=== PATIENT | female | born 1945 | race Caucasian/White ===

== ENCOUNTER 2017-12-25 13:17 | Inpatient (IN) | payer OTHER, MEDICARE ==
[~2017-12-25] VITALS: Ht 165.1 cm; Wt 81.6 kg
[~2017-12-25 13:17] MED LIST: ACYCLOVIR 200200 MG PO; AMBEREN PO; BENICAR40 MG PO; CLARITIN10 M2 PO; FLEXERIL PO; LEVOTHYROXINE0.05 MG PO; LORTAB 5 MG/5001 TA1 PO; NORCO 5-325 TA1 EACH PO; PERCOCET 5-3251 EACH PO; PERCOCET 7.5-31 EACH PO; SYNTHROID PO; Synthroid PO; TEKTURNA300 MG PO; VICODIN; Zovirax PO
[2017-12-25 13:20] VITALS: BP 112/59
[2017-12-25] MEDS ORDERED: HYDROCHLOROTH12.5 M1 PO (14:07)
[2017-12-25] MEDS ORDERED: LIPITOR10 MG PO (14:07)
[2017-12-25] MEDS ORDERED: NEURONTIN 300300 M1 PO (14:07)
[2017-12-25 14:08] LABS: ABSOLUTE LYMPHOCYTES 0.4 thou/uL (0.8-5.3); ABSOLUTE MONOCYTES 0.5 thou/uL (0.0-1.2); ABSOLUTE NEUTROPHILS 2.4 thou/uL (1.6-8.1); BASOPHILS 0.3 %; EOSINOPHILS 0.8 %; HEMATOCRIT 36.9 % (37.0-47.0); HEMOGLOBIN 12.4 gm/dL (12.0-15.0); LYMPHOCYTES 12.4 %; MCH 31.4 pg (26.0-34.0); MCHC 33.5 g/dL (28.0-37.0); MCV 93.6 fL (80.0-100.0); MONOCYTES 14.2 %; MPV 7.2 fl. (7.2-11.1); NUCLEATED RBCS 0 /100WBC; PLATELET COUNT* 111 thou/uL (150-400); POLYS 72.3 %; RBC 3.94 mil/uL (4.20-5.00); RDW-CV 13.7 % (10.5-14.5); WBC 3.4 thou/uL (4.0-11.0)
[2017-12-25] MEDS ORDERED: ARIMIDEX1 MG PO (14:08)
[2017-12-25] MEDS ORDERED: COZAAR 50 MG TA50 M2 PO (14:09)
[2017-12-25] MEDS ORDERED: SYNTHROID100 MCG PO (14:09)
[2017-12-25 14:16] LABS: ANION GAP 6 mmol/L (7-16); BUN 26 mg/dL (7-18); CALCIUM 7.8 mg/dL (8.5-10.1); CHLORIDE 106 mmol/L (98-107); CO2 30 mmol/L (21-32); CREATININE 0.9 mg/dL (0.6-1.3); GLUCOSE 120 mg/dL (70-99); POTASSIUM 3.7 mmol/L (3.5-5.1); SODIUM 142 mmol/L (136-145)
[2017-12-25 14:18] LABS: INR 1.1; PROTIME 10.5 Seconds (9.20-11.50)
[2017-12-25 14:28] LABS: ALBUMIN 3.1 g/dL (3.4-5.0); ALKALINE PHOSPHATASE 49 U/L (46-116); NT-PRO BRAIN NAT PEPTIDE 29 pg/mL (<300); SGOT 32 U/L (15-37); SGPT 37 U/L (30-65); TOTAL BILIRUBIN 0.6 mg/dL (<0.1-1.0); TOTAL PROTEIN 6.2 g/dL (6.4-8.2); TROPONIN-I LEVEL <0.06 ng/mL (<0.06)
[2017-12-25 14:38] LABS: URINE BILIRUBIN NEGATIVE (Negative); URINE BLOOD 2+ (Negative); URINE CLARITY CLOUDY; URINE COLOR YELLOW; URINE GLUCOSE-RANDOM NEGATIVE (Negative); URINE KETONES NEGATIVE (Negative); URINE LEUKOCYTES-REFLEX 2+ (Negative); URINE NITRITE-REFLEX POSITIVE (Negative); URINE PROTEIN 1+ (Negative); URINE SPECIFIC GRAVITY 1.015 (1.005-1.030); URINE UROBILINOGEN 0.2 E.U./dl (0.2-1.0)
[2017-12-25 14:49] LABS: SQUAMOUS 4-10 Moderate /LPF (0-3); WBC CLUMPS Moderate (None Seen)
[2017-12-25 14:50] LABS: MUCUS None Seen strn/LPF (None Seen)
[2017-12-25 14:51] LABS: AMORPHOUS PHOSPHATES Few /LPF (None Seen); WAXY CAST 0-3 Few /LPF (None Seen)
[2017-12-25 17:10] VITALS: BP 129/82
--- NOTE | 2017-12-25 17:29 | EKG ---
[place] [address] ELECTROCARDIOGRAM REPORT Name: ROSLYN TORRE Room: [address] ADM IN [facility].#: [id number] Admission: 12/25/17 Attend Phys: Judith Diop Discharge: Date of : 47 Report #: [id number] THIS REPORT FOR: //name// [facility] ED Test Date: 2017-12-25 Test Time: 13:40:47 Pat Name: ROSLYN TORRE Department: Room: [facility] Gender: F Musician Instrumental: Kristen WAITE : 1945 Requested By: Radha Segovia Order Number: [id number] MD: Jaison Corea Measurements Intervals Cameron Rate: 61 P: 42 SD: 157 QRS: -31 QRSD: 107 T: 21 QT: 448 QTc: 452 Interpretive Statements Sinus rhythm Left axis deviation Low voltage, precordial leads Baseline wander in lead(s) V2,V4,V6 Compared to ECG 09/16/2011 10:55:38 Left-axis deviation now present Low QRS voltage now present Sinus bradycardia no longer present Myocardial infarct finding no longer present Electronically Signed On 12-25-2017 17:29:41 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
[2017-12-25 17:30] VITALS: BP 125/60
[2017-12-25 19:35] VITALS: BP 99/60
[2017-12-25 19:38] LABS: CHOLESTEROL 130 mg/dL (<200); HDL CHOLESTEROL 37 mg/dL (>40); LDL CHOLESTEROL 76 mg/dL (<100); TC:HDL 3.5 Ratio (Not establshd); TRIGLYCERIDE 86 mg/dL (<150); VLDL 17 mg/dL (<40)
[2017-12-25 19:42] LABS: SERUM ASSESSMENT CLEAR
[2017-12-26] VITALS: BP 97/56
[2017-12-26 00:20] LABS: INFLUENZA A ANTIGEN None Detected (None Detect)
[2017-12-26 04:12] VITALS: BP 125/68
[2017-12-26 04:43] LABS: ABSOLUTE LYMPHOCYTES 0.8 thou/uL (0.8-5.3); ABSOLUTE MONOCYTES 0.4 thou/uL (0.0-1.2); ABSOLUTE NEUTROPHILS 1.9 thou/uL (1.6-8.1); BASOPHILS 0.4 %; EOSINOPHILS 1.2 %; HEMATOCRIT 35.8 % (37.0-47.0); HEMOGLOBIN 12.1 gm/dL (12.0-15.0); LYMPHOCYTES 25.6 %; MCH 31.3 pg (26.0-34.0); MCHC 33.7 g/dL (28.0-37.0); MCV 92.7 fL (80.0-100.0); MONOCYTES 13.8 %; MPV 7.8 fl. (7.2-11.1); NUCLEATED RBCS 0 /100WBC; PLATELET COUNT* 108 thou/uL (150-400); RBC 3.86 mil/uL (4.20-5.00); RDW-CV 13.6 % (10.5-14.5); WBC 3.2 thou/uL (4.0-11.0)
[2017-12-26 05:14] LABS: ALBUMIN 2.9 g/dL (3.4-5.0); CALCIUM 8.1 mg/dL (8.5-10.1); CREATININE 0.8 mg/dL (0.6-1.3); POTASSIUM 3.6 mmol/L (3.5-5.1); TOTAL BILIRUBIN 0.3 mg/dL (<0.1-1.0); TOTAL PROTEIN 5.6 g/dL (6.4-8.2)
[2017-12-26 08:00] VITALS: BP 115/56
[2017-12-26 12:14] VITALS: BP 118/96
[2017-12-26 16:00] VITALS: BP 104/58
[2017-12-26 20:00] VITALS: BP 111/66
[2017-12-27] VITALS (7 sets, daily range): BP systolic 100–155; BP diastolic 54–83
[2017-12-27 05:10] LABS: ABSOLUTE LYMPHOCYTES 0.9 thou/uL (0.8-5.3); ABSOLUTE MONOCYTES 0.4 thou/uL (0.0-1.2); ABSOLUTE NEUTROPHILS 1.5 thou/uL (1.6-8.1); BASOPHILS 0.4 %; EOSINOPHILS 1.3 %; HEMATOCRIT 35.2 % (37.0-47.0); LYMPHOCYTES 30.6 %; MCH 31.3 pg (26.0-34.0); MCHC 34.1 g/dL (28.0-37.0); MCV 91.7 fL (80.0-100.0); MPV 7.7 fl. (7.2-11.1); NUCLEATED RBCS 0 /100WBC; PLATELET COUNT* 95 thou/uL (150-400); POLYS 54.7 %; RBC 3.84 mil/uL (4.20-5.00); RDW-CV 13.9 % (10.5-14.5); WBC 2.8 thou/uL (4.0-11.0)
[2017-12-27 05:33] LABS: ALBUMIN 2.9 g/dL (3.4-5.0); CALCIUM 7.9 mg/dL (8.5-10.1); CREATININE 0.7 mg/dL (0.6-1.3); POTASSIUM 3.7 mmol/L (3.5-5.1); TOTAL BILIRUBIN 0.3 mg/dL (<0.1-1.0); TOTAL PROTEIN 5.6 g/dL (6.4-8.2)
--- NOTE | 2017-12-27 09:16 | CON ---
[address] [address] CONSULTATION Name: TORREROSLYN L Room: [address] IN M.R.#: [id number] Admission: 12/25/17 Attend Phys: Judith Diop Discharge: Date of : 47 Report #: [id number] THIS REPORT FOR: //name// CC: Alisha Latif INDICATION: Syncope. HISTORY OF PRESENT ILLNESS: The patient is a very pleasant 72-year-old white female who was in her usual state of health yesterday when she went to go [employer]. She drove herself from [place] to [facility] [place]. 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 She does not recall any events leading up to syncope. The next thing she recalls people were standing around her asking her not to move. She had no significant symptoms prior to this and none since. EMS was summoned to the scene. She was found to be significantly hypotensive. She was transferred to the hospital for further evaluation and admitted with syncope. She does have a history of hypertension for which she takes hydrochlorothiazide and losartan. She does take atorvastatin as well for hyperlipidemia. She has not been having any significant chest pain or shortness of breath. She has been relatively asymptomatic. She does have a history of having echocardiograms approximately 6 years ago in the process of chemotherapy for breast cancer. She reports that those echocardiograms remained unremarkable. PAST MEDICAL HISTORY: 1. Breast cancer, status post chemotherapy. 2. Hyperlipidemia. 3. Hypertension. 4. Hypothyroidism. PAST SURGICAL HISTORY: Appendectomy. FAMILY HISTORY: Noncontributory. SOCIAL HISTORY: The patient is . She does not smoke. She drinks alcohol occasionally. ALLERGIES: PENICILLIN. CURRENT MEDICATIONS: Anastrozole 1 mg daily, atorvastatin 10 mg at bedtime, gabapentin 300 mg at bedtime, hydrochlorothiazide 12.5 mg daily, Synthroid 0.1 mg daily, losartan 100 mg daily. REVIEW OF SYSTEMS: On 14-point review of systems [place] [address] CONSULTATION Name: ROSLYN TORRE Jason Room: [address]#: [id number] Admission: 12/25/17 Attend Phys: Judith Diop Discharge: Date of : 47 Report #: [id number] of clear sputum. She has history of some asthma remotely. She had syncope for admission diagnosis at this time. As a child she was told she had a heart murmur. She has hypothyroidism. She has a history of breast cancer, status post chemotherapy. She has allergies as outlined above. She wears glasses without acute visual change. The 14-point review of systems otherwise unremarkable. PHYSICAL EXAMINATION: VITAL SIGNS: Stable. Blood pressure 115/56, pulse 59 and regular. GENERAL: This is a pleasant elderly female, in no distress. Mood and affect appropriate. HEENT: The patient is wearing glasses. Extraocular muscles intact. Mucous membranes are moist. NECK: Shows no jugular venous distention. There are no carotid bruits. CHEST: Reveals clear lung reid without wheezes, rales or rhonchi. CARDIOVASCULAR: Reveals a regular rhythm with normal S1 and S2. I do not appreciate gallop or murmur. ABDOMEN: Reveals normal bowel sounds. The abdomen is soft, nontender. EXTREMITIES: Shows no edema. SKIN: Warm and dry. Pulses 2+ and palpable. LABORATORY DATA: A 12-lead EKG shows normal sinus rhythm with no significant ST or T-wave abnormality. Labs are reviewed. Electrolytes are within normal limits. BUN 19, creatinine 0.8, serum glucose 91. LFTs within normal limits. Lipid profile shows a total cholesterol of 130, triglycerides 86, HDL 37, LDL 76. White blood cell count 3.2, hemoglobin 12.1, platelet count 108,000. The patient was apparently positive for influenza B. CTA with PE protocol shows no evidence of pulmonary embolus. Portable chest x-ray unremarkable. CT of the head shows some chronic changes, but no acute abnormalities. IMPRESSION AND RECOMMENDATIONS: 1. Syncope, etiology not entirely clear. I believe she had some dehydration probably from hydrochlorothiazide. She was significantly hypotensive. At this point in time, I would repeat echocardiogram. This can be done as an outpatient. I would discontinue her hydrochlorothiazide. I would encourage her to make sure she gets adequate fluid intake. 2. Hypertension. Blood pressure low normal presently. I would discontinue hydrochlorothiazide as outlined above [place] [address] CONSULTATION Name: ROSLYN TORRE Room: [address] IN [facility]#: [id number] Admission: 12/25/17 Attend Phys: Judith Diop Discharge: Date of : 47 Report #: [id number] 3. Hyperlipidemia. She is certainly at goal with her current dose of atorvastatin, would continue as outlined above. <ELECTRONICALLY SIGNED> By: Jerome De Anda MD, FACC 12/27/17 0916 0956 1900Micosvaldo De Anda MD, FACC /nt
[2017-12-28 03:51] VITALS: BP 118/82
[2017-12-28 05:27] LABS: ABSOLUTE EOSINOPHILS 0.1 thou/uL (0.0-0.7); ABSOLUTE LYMPHOCYTES 1.2 thou/uL (0.8-5.3); ABSOLUTE MONOCYTES 0.4 thou/uL (0.0-1.2); ABSOLUTE NEUTROPHILS 1.8 thou/uL (1.6-8.1); BASOPHILS 0.3 %; EOSINOPHILS 1.8 %; HEMATOCRIT 35.4 % (37.0-47.0); HEMOGLOBIN 12.1 gm/dL (12.0-15.0); LYMPHOCYTES 34.2 %; MCH 31.2 pg (26.0-34.0); MCHC 34.1 g/dL (28.0-37.0); MCV 91.6 fL (80.0-100.0); MONOCYTES 10.8 %; NUCLEATED RBCS 0 /100WBC; PLATELET COUNT* 95 thou/uL (150-400); POLYS 52.9 %; RBC 3.87 mil/uL (4.20-5.00); RDW-CV 13.5 % (10.5-14.5); WBC 3.4 thou/uL (4.0-11.0)
[2017-12-28 05:48] LABS: ALBUMIN 2.8 g/dL (3.4-5.0); CREATININE 0.8 mg/dL (0.6-1.3); POTASSIUM 3.5 mmol/L (3.5-5.1); TOTAL BILIRUBIN 0.4 mg/dL (<0.1-1.0); TOTAL PROTEIN 5.5 g/dL (6.4-8.2)
[2017-12-28 07:30] VITALS: BP 144/78
[2017-12-28 11:33] VITALS: BP 131/69
[2017-12-28] MEDS ORDERED: LEVOFLOXACIN750 MG PO (15:01)
[2017-12-28] MEDS ORDERED: TAMIFLU75 MG PO (15:24)
[2017-12-28] MEDS ORDERED: LEVAQUIN 750 M750 MG PO (15:25)
[2017-12-28] MEDS ORDERED: POTASSIUM20 PO (15:34)
[2017-12-28 15:35] VITALS: BP 131/69
[2017-12-28 16:02] VITALS: BP 131/69
--- NOTE | 2017-12-28 16:45 | 2DMMODE ---
[place] [address] 2 D/M-MODE ECHOCARDIOGRAM Name: ROSLYN TORRE Jason Room: [address] IN .R.#: [id number] Admission: 12/25/17 Attend Phys: Richard Acosta Discharge: Date of : 47 Date of Service: 12/28/17 1645 Report #: [id number] THIS REPORT FOR: //name// APPROVED REPORT Study performed: 12/28/2017 13:50:00 EXAM: Comprehensive 2D, Doppler, and color-flow Echocardiogram Patient Location: Bedside BSA: 1.28 HR: 59 bpm BP: 144/78 mmHg Other Information Study Quality: Fair Indications Syncope 2D Dimensions LVEF(%): 61.88 (>50%) IVSd: 12.62 (7-11mm) LVOT Diam: 20.05 (18-24mm) LVDd: 42.43 mm PWd: 10.88 (7-11mm) Ascending Ao: 40.65 (22-36mm) LVDs: 28.43 (25-40mm) Aortic Root: 28.37 mm Barnett's LVEF: 61.88 % Volumes Left Atrial Volume (Systole) LA ESV Index: 38.50 mL/m2 Aortic Valve AoV Peak Aneesh.: 1.14 m/s AO Peak Gr.: 5.23 mmHg LVOT Max P.40 mmHg AO Mean Gr.: 3.03 mmHg LVOT Mean P.57 mmHg LVOT Max V: 0.92 m/s AO V2 VTI: 25.04 cm LVOT Mean V: 0.57 m/s RIKKI (VTI): 2.50 cm2 LVOT V1 VTI: 19.84 cm Mitral Valve E/A Ratio: 1.12 MV Decel. Time: 188.55 ms MV E Max Aneesh.: 1.02 m/[place] [address] 2 D/M-MODE ECHOCARDIOGRAM Name: ROSLYN TORRE Jason Room: [address] IN [facility]#: [id number] Admission: 12/25/17 Attend Phys: Richard Acosta Discharge: Date of : 47 Date of Service: 12/28/17 1645 Report #: [id number] MV PHT: 54.68 ms MVA (PHT): 4.02 cm2 TDI E/Lateral E': 14.57 E/Medial E': 11.33 Medial E' Aneesh.: 0.09 m/s Lateral E' Aneesh.: 0.07 m/s Pulmonary Valve PV Peak Aneesh.: 1.12 m/s PV Peak Gr.: 5.06 mmHg Tricuspid Valve RAP Estimate: 5.00 mmHg TR Peak Gr.: 22.95 mmHg RVSP: 27.95 mmHg PA Pressure: 27.95 mmHg Left Ventricle The left ventricle is normal size. There is normal LV segmental wall motion. There is normal left ventricular wall thickness. Left ventricular systolic function is normal. The left ventricular ejection fraction is within the normal range. LVEF is 60-65%. The left ventricular diastolic function is normal. Right Ventricle The right ventricle is normal size. The right ventricular systolic function is normal. Atria Left atrium is mildly dilated. The right atrium size is normal. Aortic Valve Aortic valve leaflets are mildly thickened. Trace aortic regurgitation. There is no aortic valvular stenosis. Mitral Valve The mitral valve is normal in structure. Trace mitral regurgitation. No evidence of mitral valve stenosis. Tricuspid Valve The tricuspid valve is normal in structure. Trace tricuspid regurgitation. Pulmonic Valve The pulmonary valve is normal in structure. There is no pulmonic [place] [address] 2 D/M-MODE ECHOCARDIOGRAM Name: ROSLYN TORRE Room: [address]#: [id number] Admission: 12/25/17 Attend Phys: Richard Acosta Discharge: Date of : 47 Date of Service: 12/28/17 1645 Report #: [id number] Great Vessels The aortic root is normal in size. The ascending aorta is mildly dilated. IVC is normal in size and collapses with >50% inspiration Pericardium There is no pericardial effusion. <Conclusion> LVEF is 60-65%. Left atrium is mildly dilated. The ascending aorta is mildly dilated. <ELECTRONICALLY SIGNED> By: Adam Patel MD, [facility] 12/28/17 1645 164 44 Adam Patel MD, FACC /INF
== END 2017-12-28 17:08 | disposition home or self-care (01) | DRG 871 ==
LOC: M.ERS 13:17 → M.TBA-ER 16:37 → M.2W 16:37
PROVIDERS: Physician Assistant; ADMIT Internal Medicine
DX: A41.9 Sepsis, unspecified organism (principal); D61.810 Antineoplastic chemotherapy induced pancytopenia; N39.0 Urinary tract infection, site not specified; E46 Unspecified protein-calorie malnutrition; J10.1 Influenza due to other identified influenza virus with other respiratory manifestations; I10 Essential (primary) hypertension; E78.5 Hyperlipidemia, unspecified; I95.9 Hypotension, unspecified; I49.9 Cardiac arrhythmia, unspecified; E03.9 Hypothyroidism, unspecified; Z90.12 Acquired absence of left breast and nipple; Z85.3 Personal history of malignant neoplasm of breast; Z79.899 Other long term (current) drug therapy; Z88.0 Allergy status to penicillin; Z90.49 Acquired absence of other specified parts of digestive tract; Z68.30 Body mass index [BMI] 30.0-30.9, adult; Z92.21 Personal history of antineoplastic chemotherapy; Z90.89 Acquired absence of other organs; Z87.440 Personal history of urinary (tract) infections; E86.0 Dehydration

== ENCOUNTER → 2018-02-02 | Outpatient (CLI) | payer OTHER, MEDICARE ==
[~2018-02-02] MED LIST changes: +ARIMIDEX1 MG PO; +COZAAR 50 MG TA50 M2 PO; +HYDROCHLOROTH12.5 M1 PO; +LEVAQUIN 750 M750 MG PO; +LEVOFLOXACIN750 MG PO; +LIPITOR10 MG PO; +NEURONTIN 300300 M1 PO; +POTASSIUM20 PO; +SYNTHROID100 MCG PO; +TAMIFLU75 MG PO
== END ==
LOC: M.RAD 12:52
DX: Z12.31 Encounter for screening mammogram for malignant neoplasm of breast (principal); M85.89 Other specified disorders of bone density and structure, multiple sites; Z78.0 Asymptomatic menopausal state; Z85.3 Personal history of malignant neoplasm of breast; Z79.811 Long term (current) use of aromatase inhibitors